=== PATIENT | male | born 1970 | race Caucasian/White ===

== ENCOUNTER → 2021-10-28 | Outpatient (CLI) | payer OTHER ==
[2021-10-28 13:25] VITALS: BP 158/97; PULSE 83; RESP 18; TEMP 98
--- NOTE | 2021-10-28 13:45 | P.CON ---
Consult Note - . Consult date: 10/28/21 Assessment/Plan:: HISTORY OF PRESENT ILLNESS: 51 yr old male with at side as a referral from [facility] presents today with chronic and severe cervical pain secondary to disc bulges, spinal stenosis, neuroforaminal stenoses, bilateral C5/C6/C7 impingement and facet arthropathy for evaluation. Patient states his neck pain is 10 out of 10 in intensity, dull, achy in the middle and lower aspects of his cervical spine with radiation of sharp, shooting pain to the left shoulder and left lower extremity. Patient also complains of occasional left upper extremity weakness. Pain is provoked with extension, lateral flexion and lifting. Pain is relieved with medications (Gabapentin) which are ineffective at times causing jumpy legs, topicals which are ineffective, injections in the past which have been ineffective, physical therapy of which he had 2 visits and then was discharged due to lack of improvement, chiropractic treatments of which his last visit was September 2021 and was discharged as being too painful to touch, home exercise regimen and rest. PMH: HTN PSH: Hernia Repair SH: Cannabis use, Hx of addiction, no ETOH abuse. to retired nurse. [place] FH: CAD, HTN, [place] All: NKDA Meds: See list REVIEW OF ORGAN SYSTEMS: CONSTITUTIONAL: No fevers or chills. No recent weight loss. HEENT: No visual acuity loss, eye pain, difficulties with hearing. No nosebleeds. No difficulty swallowing. RESPIRATORY: Denies any troubles with breathing or dyspnea on exertion. CARDIOVASCULAR: Denies any chest pain, palpitations, or recent heart attacks. GASTROINTESTINAL: Denies fatty food intolerance. Has change in bowel habits and gas bloat. GENITOURINARY: Denies any blood in urine. Has increased urinary frequency. NEUROLOGICAL: + numbness and tingling along the distal extremities. No seizure disorders or headaches. MUSCULOSKELETAL: + back pain SKIN: No skin cancer. No rash. PSYCHIATRIC: Denies current depression or suicidal thoughts. ENDOCRINE: Denies current thyroid disorders. Denies any blood sugar glucose intolerance. HEME/LYMPHATIC: Denies any lumps and bumps around the neck. History of deep venous thrombosis. ALLERGY/IMMUNOLOGY: No immunoglobulin therapy. No immune deficiencies. BREAST: Denies current breast lumps, pain or nipple discharge. Physical Examinations : Constitutional : Cooperative , not in acute distress . HEENT: Neck supple. No Lymphadenopathy. Normal thyroid size . Eyes no ptosis , no icterus, no photophobia . Hearing intact. Normal oropharynx. No Thrush. Respiratory : Chest clear to auscultations bilaterally. No wheezing. No rhonchi. Cardiovascular : Regular rate and rhythm , S1 / S2. No S3 . No S4. Gastrointestinal : Abdomen soft. No tenderness. Bowel sounds x 4. No organomegaly . Genitourinary : Deferred. Neurologic : Cranial nerve II to XII intact. No focal neurological deficits. Psychiatric : alert & oriented x 3. Matching mood & appropriate affect. Judgment & insight intact. Lymphatic No Lymphadenopathy. Musculoskeletal : Cervical Spine Motor strength in the deltoid and biceps: Normal right side. Normal Left side Motor strength biceps and the wrist extensors: Normal right side . Normal left side Motor strength in the triceps muscle: Normal right side. Normal left side Deep tendon reflexes: Normal at the biceps. Normal at Brachioradialis. Normal at triceps Vertebral body tenderness over C5, C6 Cervical facet loading test: positive bilaterally Spurling test: positive bilaterally Neck distraction test: positive bilaterally Pravin sign: positive bilaterally Lumbar spine Motor strength lower extremities ,thigh and legs 5/5 Right side , 5/5 Left side Deep tendon reflexes : Normal Knee Jerk. Normal Ankle Jerk Vertebral body tenderness over Lumbar facet Loading Test: positive Right / positive Left Range of motion of the lumbar spine Flexion 30 degrees, extension 10 degrees Straight Leg Raise test: Left/ Right positive at degree Vic test: positive right / positive left. Severe tenderness over the Sacroiliac joint on the Right / Left sides Gaenslen test: positive bilaterally Seated flexion test: positive bilaterally. Imaging: X-ray of the cervical spine from 08/24/21 reviewed MRI of the cervical spine without contrast from 09/29/21 reviewed Assessment/ Plan : Recommendation of MAUDE C5-C6. May need a series of injections, up to 3 within a six-month period, to obtain optimal pain relief. Risks, benefits of procedure discussed and patient verbalized understanding. Denies aspirin or anti- coagulant use. Denies medical history of diabetes. All questions answered. I have spent greater than 50 minutes on patient care today. Dr Snow was available by phone for the evaluation of this patient. The time was used to revi ew the medical records including relevant urine studies and Prescription history (MAPs), review of the available imaging, evaluation and examination of the patient, coordination of care with the medical staff and if applicable referring physicians, as well as creation of the medical record PQRS Measure Charge Sheet Mode of Arrival: Ambulatory - Pain Location Neck Non-Pharmacological Interventions: Chiropractic Treatment, Heat, Home Exercise, Ice, Inactivity, Stretching Pharmacological Interventions: PRN Medication, Topical Medication PQRS Narrative: Blood Pressure 158/97 Pain Intensity [Neck] 10 Scale Used Numeric (1 - 10) Hx Alcohol Use (MH) No Home Medications: Ambulatory Orders Losartan Potassium [Cozaar] 1 tab PO DAILY 10/28/21 Metoprolol Succinate [Toprol XL] 1 tab PO DAILY 10/28/21 amLODIPine [Norvasc] 1 tab PO DAILY 10/28/21 hydroCHLOROthiazide 1 tab PO DAILY 10/28/21
== END ==
LOC: PNWHC3 12:23
PROVIDERS: ATTEND Specialist
DX: M48.02 Spinal stenosis, cervical region (principal); M50.20 Other cervical disc displacement, unspecified cervical region; M47.812 Spondylosis without myelopathy or radiculopathy, cervical region; G89.29 Other chronic pain; I10 Essential (primary) hypertension
CPT/HCPCS: 99202

== ENCOUNTER → 2021-12-16 | Outpatient (CLI) | payer OTHER ==
[2021-12-16 15:00] VITALS: BP 167/95; PULSE 63; RESP 18; TEMP 98.2
--- NOTE | 2021-12-16 15:06 | P.PN ---
Subjective Progress Note Date: 12/16/21 Principal diagnosis: A 51 yr old male with at side with a history of severe and chronic neck pain secondary to degenerative disc diseases and spondylosis with facet arthropathy presents today for evaluation s/p MAUDE C7-T1 #1. He states he experienced 0% pain relief. Within 2 days, pt returned to the ER with violent tendencies, stating he wanted to rip his 's head off. He was sedated while in the ER, then discharged, still without pain relief. Pt stated he does not want to ever try steroid injections again, stating "I'd before I get another one of those shots." Pain level is currently at 10/10 in intensity, sharp sensation from the neck radiating to the L shoulder with constant numbness to the L hand. Pain is provoked by any form of cervical movement. Pain is alleviated slightly with medcations, cannabis use, injections which provided 0% relief, PT but only 1 session as it provoked pain, chiropractic treatment last in 08/2021 which was ineffective and was discharged from the facility, home stretching regimen as tolerated and rest. Interventional pain procedures completed include MAUDE C7-T1 x1 Patient is currently on DENIES Patient denies any side effects of the medication(s), denies excessive drowsiness or sleepiness, denies suicidal ideation and reports that the current pain medication is helping to control the pain and improve activities of daily living. Patient denies any motor or sensory deficits. Patient denies any fever or night sweats, denies any change in the bowel movements or urination. Physical Examination: -Constitutional: Cooperative. Not in acute distress . -HEENT: Neck is supple. No lymphadenopathy. No thyromegaly. Normal thyroid size. Eyes: No ptosis , no icterus, no photophobia. ENT: No auditory deficits. Normal oropharynx. No Thrush. - Respiratory: Chest clear to auscultations bilaterally. No wheezing. No rhonchi. - Cardiovascular: Regular rate and rhythm. S1 / S2 , no S3 , no S4. - Gastrointestinal: Abdomen soft no tenderness. Bowel sounds positive in all four quadrants. No organomegaly. - Genitourinary: Deferred. - Neurologic: Cranial nerve II to XII intact. No focal neurological deficits. - Psychatric: Alert & oriented x 3. Matching mood & appropriate affect. Judgment and insight intact. - Lymphatic: No Lymphadenopathy. - Musculoskeletal: Cervical spine: Muscle bulk/ tone/ strength in the bilateral upper extremities normal Vertebral body tenderness to palpation over C7, T1 Spurling test positive Distraction test positive Facet loading test positive Thoracic spine Muscle bulk / tone/ strength in the bilateral paraspinal muscles normal Vertebral body tender to palpation over Facet loading test positive Lumbar spine: Motor bulk/ tone/ strength lower extremities , thigh and legs : 5/5 Deep tendon reflexes : Normal Knee Jerk. Normal Ankle Jerk . Vertebral body tenderness to palpation over Lumbar Facet Loading Test positive Straight Leg Raise: positive at 30 degrees right side/ left side Gaenslen's Test positive Sacral spine : Severe tenderness over the Sacroiliac joint: right side / left side Range of motion: Flexion of the lumbar spine <60 degrees Range of motion: Extension of the lumbar spine <20 degrees Gaenslen's Test positive Jean Pierre's Test positive Vic test: positive right side / left side Thigh Thrust Test Sacral Thrust Test Assessment and plan: Chronic neck pain secondary to degenerative disc disease , spondylosis with facet arthropathy without myelopathy Pt states he suffered a severely agitated emotional and physical state s/p steroid injection. Cortisone injections seem to be contraindicated due to pt's response to treatment. Will refer to orthopedic surgeon, Dr Daly, for cervical DDD to discuss additional treatment options. He may return to our clinic on an as needed basis All patient questions answered MAPS reviewed and it was appropriate. I have spent 31 minutes on patient care today. Dr Snow was available by phone for the evaluation of this patient. The time was used to review the medical records including relevant urine studies and Prescription history (MAPs), review of the available imaging, evaluation and examination of the patient, coordination of care with the medical staff and if applicable referring physicians, as well as creation of the medical record PQRS Measure Charge Sheet Mode of Arrival: Ambulatory PQRS Narrative: Blood Pressure 167/95 Pain Intensity [Neck] 10 Scale Used Numeric (1 - 10) Hx Alcohol Use (MH) No Home Medications: Ambulatory Orders Losartan Potassium [Cozaar] 100 tab PO DAILY 10/28/21 Metoprolol Succinate [Toprol XL] 100 tab PO DAILY 10/28/21 amLODIPine [Norvasc] 10 tab PO DAILY 10/28/21 hydroCHLOROthiazide 25 tab PO DAILY 10/28/21
== END ==
LOC: PNWHC3 13:51
PROVIDERS: ATTEND Specialist
DX: M50.30 Other cervical disc degeneration, unspecified cervical region (principal); M47.812 Spondylosis without myelopathy or radiculopathy, cervical region; G89.29 Other chronic pain
CPT/HCPCS: 99211